=== PATIENT | female | born 1985 | race Caucasian/White ===

== ENCOUNTER 2019-05-29 22:10 | Inpatient (IN) | payer MEDICAID ==
[2019-05-29] MEDS ORDERED: LIDOCAINE 1% (MPF) 30 ML INJ INJ (22:30)
[2019-05-29] MEDS ORDERED: OXYTOCIN 30 UNITS/LR 500 ML IV (22:30)
[2019-05-29] MEDS ORDERED: BUTORPHANOL 2 MG INJ IV (22:30)
[2019-05-29] MEDS ORDERED: MISOPROSTOL 200 MCG TAB PR (22:30)
[2019-05-29] MEDS ORDERED: CARBOPROST 250 MCG INJ IM (22:30)
[2019-05-29] MEDS ORDERED: IBUPROFEN 600 MG TAB PO (22:30)
[2019-05-29] MEDS: LACTATED RINGER'S 1,000 ML IV (23:14)
[2019-05-29 23:28] LABS: ADD MAN DIFF? NO
[2019-05-29 23:32] LABS: BASOPHILS % 0.3 % (0.0-2.0); EOSINOPHILS # 0.2 10^3/ul (0.0-0.5); EOSINOPHILS % 1.9 % (0.0-7.0); HEMATOCRIT 35.1 % (37.0-47.0); HEMOGLOBIN 11.4 g/dl (12.0-16.0); LYMPHOCYTES # 2.7 10^3/ul (0.8-2.9); LYMPHOCYTES % 33.7 % (15.0-51.0); MEAN CORPUSCULAR HEMOGLOBIN 27.6 pg (29.0-33.0); MEAN CORPUSCULAR HGB CONC 32.5 g/dl (32.0-37.0); MEAN PLATELET VOLUME 10.3 fl (7.4-10.4); MONOCYTE # 0.6 10^3/ul (0.3-0.9); MONOCYTES % 7.1 % (0.0-11.0); NEUTROPHIL # 4.5 10^3/ul (1.6-7.5); NEUTROPHILS % 56.5 % (39.0-77.0); PLATELET COUNT 232 10^3/UL (140-415); RED BLOOD COUNT 4.13 10^6/ul (4.20-5.40); RED CELL DISTRIBUTION WIDTH 16.6 % (11.5-14.5)
[2019-05-29 23:51] LABS: INR 0.86; PROTIME 11.8 Sec (11.9-14.9); PT RATIO 0.9
[2019-05-30] MEDS: AMPICILLIN 2 GM/NS (PMX) 100 ML IV (01:15)
[2019-05-30] MEDS: MISOPROSTOL 50 MCG CAPSULE PO ×4 (01:15→13:07)
[2019-05-30] MEDS: AMPICILLIN 1 GM/NS (PMX) 50 ML IV ×5 (05:29→21:11)
[2019-05-30] MEDS: LACTATED RINGER'S 1,000 ML IV ×3 (07:58→17:13)
[2019-05-30] MEDS ORDERED: NALOXONE (0.4 MG/ML) INJ IV ×2 (16:00→20:00)
[2019-05-30] MEDS ORDERED: TRIMETHOBENZAMIDE 100 MG/ML VIAL IM ×2 (16:00→20:00)
[2019-05-30] MEDS ORDERED: DIPHENHYDRAMINE 50 MG INJ IV ×2 (16:00→20:00)
[2019-05-30] MEDS ORDERED: ONDANSETRON 4 MG INJ IV ×2 (16:00→20:00)
[2019-05-30] MEDS ORDERED: FENTAnyl 2MCG/ML-ROPIV 0.2% 100 ML (16:11)
[2019-05-30 16:33] LABS: RAPID PLASMA REAGIN NONREACTIVE (NR)
[2019-05-30] MEDS: FENTAnyl 2MCG/ML-ROPIV 0.2% 100 ML BAG EPI (21:11)
[2019-05-30] MEDS: METHYLERGONOVINE 0.2 MG INJ IM (23:17)
[2019-05-30] MEDS: OXYTOCIN 30 UNITS/LR 500 ML IV ×2 (23:17→23:44)
[2019-05-31] MEDS ORDERED: CARBOPROST 250 MCG INJ IM
[2019-05-31] MEDS ORDERED: MISOPROSTOL 200 MCG TAB PR
[2019-05-31] MEDS ORDERED: OXYCODONE/ASPIRIN (4.88/325) TAB PO ×2
[2019-05-31] MEDS ORDERED: OXYTOCIN 30 UNITS/LR 500 ML IV
[2019-05-31] MEDS ORDERED: ONDANSETRON 4 MG INJ IV
[2019-05-31] MEDS ORDERED: NACL 0.9% 3 ML SYG IV
[2019-05-31] MEDS ORDERED: METHYLERGONOVINE 0.2 MG INJ IM
[2019-05-31] MEDS: OXYTOCIN 30 UNITS/LR 500 ML IV ×2 (00:28→04:40)
[2019-05-31] MEDS: WITCH HAZEL/GLYCERIN PAD PR (04:38)
[2019-05-31] MEDS: BENZOCAINE 20% 56 ML SPRAY TOP (04:38)
[2019-05-31] MEDS: IBUPROFEN 600 MG TAB PO ×4 (04:38→17:56)
[2019-05-31 08:09] LABS: ADD MAN DIFF? NO
[2019-05-31] MEDS: SENNA/DOCUSATE NA (8.6MG/50MG) TAB PO (08:57)
[2019-05-31 10:20] LABS: WHITE BLOOD COUNT 13.5 10^3/ul (4.8-10.8)
[2019-05-31 10:20] LABS: BASOPHILS % 0.1 % (0.0-2.0); EOSINOPHILS # 0.1 10^3/ul (0.0-0.5); EOSINOPHILS % 0.4 % (0.0-7.0); HEMATOCRIT 32.8 % (37.0-47.0); HEMOGLOBIN 10.7 g/dl (12.0-16.0); LYMPHOCYTES # 2.1 10^3/ul (0.8-2.9); LYMPHOCYTES % 15.8 % (15.0-51.0); MEAN CORPUSCULAR HEMOGLOBIN 27.9 pg (29.0-33.0); MEAN CORPUSCULAR HGB CONC 32.6 g/dl (32.0-37.0); MEAN CORPUSCULAR VOLUME 85.6 fl (82.0-101.0); MONOCYTE # 1.3 10^3/ul (0.3-0.9); MONOCYTES % 9.3 % (0.0-11.0); PLATELET COUNT 211 10^3/UL (140-415); RED BLOOD COUNT 3.83 10^6/ul (4.20-5.40)
[2019-06-01] MEDS: SENNA/DOCUSATE NA (8.6MG/50MG) TAB PO ×2 (00:07→08:58)
[2019-06-01] MEDS: IBUPROFEN 600 MG TAB PO ×3 (00:07→12:39)
[2019-06-01] MEDS: WITCH HAZEL/GLYCERIN PAD PR (12:38)
[2019-06-01] MEDS: BENZOCAINE 20% 56 ML SPRAY TOP (12:38)
== END 2019-06-01 13:40 | disposition home or self-care (01) | DRG 807 ==
LOC: PP1 05-31 01:24 → L-D 22:10
PROVIDERS: Obstetrics & Gynecology
PROC: 10E0XZZ Delivery of Products of Conception, External Approach (ICD-10-PCS; principal; 2019-05-30)
PROC: 0HQ9XZZ Repair Perineum Skin, External Approach (ICD-10-PCS; 2019-05-30)
DX: O48.0 Post-term pregnancy (principal); Z37.0 Single live birth; O70.0 First degree perineal laceration during delivery; Z3A.40 40 weeks gestation of pregnancy
CPT/HCPCS: 62322; 76815; 85025; 85610; 85730; 86592; 86850; 86900; 86901